=== PATIENT | male | born 1950 | race Caucasian/White ===

== ENCOUNTER 2023-05-23 08:52 | Day surgery (SDC) | payer OTHER, SELFPAY ==
--- NOTE | 2023-05-23 | PATH_ITS ---
[facility] Accession Number: [id number] No. of containers..01 Tissue . 01 Material submitted: . cecum - CECAL POLYPS 8mm . 01 Diagnosis: Cecal Polyps, Biopsy: Tubular adenomas. MRV 05/27/2023 1334 Local . 01 Electronically signed: . Sushma Lee MD, Pathologist NPI- [id number] . 01 Gross description: . CECAL POLYPS 8mm: Received in formalin is multiple fragment(s) of vee, soft tissue measuring 1.5 x 0.5 x 0.1 cm in aggregate submitted entirely in 1 cassette(s) /AAY 05/25/2023 0537 Local . 01 Pathologist provided ICD-10: D12.0 . 01 CPT . 450400 Specimen Comment: A courtesy copy of this report has been sent to [phone] Performed at: 01 [facility] [address] [place] [address], [place], [place] [id number] MD Giorgi Monet MD Phone: [phone]
[2023-05-23 11:07] VITALS: BP 130/87; PULSE 66; RESP 16; TEMP 36.2; O2SAT 93
[2023-05-23] MEDS: LACTATED RINGERS 1,000 ML 42 ML IV (11:08)
--- NOTE | 2023-05-23 11:48 | PM.HP.1 ---
History of Present Illness History of Present Illness Date Patient Seen: 05/23/23 Time Patient Seen: 11:48 Chief complaint: Colonoscopy Narrative: Juventino is a 72-year-old man who is here for colonoscopy. He has a brother who was diagnosed with colon cancer and had surgery. [facility] Social History Smoking Status: Never smoker alcohol intake: never Meds Home Medications and Allergies Home Medications Medication Instructions Recorded Confirmed Type hydrochlorothiazide 25 mg tablet 25 mg PO QAM 05/23/23 05/23/23 History losartan 100 mg tablet 100 mg PO DAILY 05/23/23 05/23/23 History Allergies Allergy/AdvReac Type Severity Reaction Status Date / Time No Known Drug Allergies Allergy Verified 05/23/23 10:56 Exam Vital Signs (past 8 hours): - 05/23/23 11:07 Temperature 97.2 F L Pulse Rate 66 Respiratory Rate 16 Blood Pressure 130/87 Pulse Oximetry 93 Oxygen Delivery Method Room Air Oxygen Delivery Method Room Air Const General: healthy appearing and No acute distress Assessment & Plan Assessment and plan (1) Family history of colon cancer: Status: Acute Plan We reviewed risks and benefits of colonoscopy for a family history of colon cancer and he would like to proceed.
--- NOTE | 2023-05-23 12:29 | PM.OP.COLON ---
Operative Date/Time/Diagnoses Date of procedure: 05/23/23 Time of procedure: 12:29 Pre-op diagnosis: Family history of colon cancer Post-op diagnosis: same Procedure & Clinicians Study performed: Colonoscopy Same procedure as scheduled: Yes Surgeon: Don Samuel Procedure Notes Procedure in detail: Surgeon: Don Samuel MD Anesthesia: Manasa Thomas CRNA Procedure: The patient was brought to the endoscopy suite, placed in left lateral decubitus position. The patient was connected to monitoring devices. A time-out was performed. Sedation was administered. Once the patient was adequately sedated, a digital rectal exam was performed and prostate was noted to be large but appropriate for age. The scope was then inserted and advanced to the cecum where the appendiceal orifice was identified and photographed. The scope was then slowly withdrawn over greater than 6 minutes. The mucosa was thoroughly inspected. There was an 8 mm polyp in the cecum removed with a cold snare. There were 2 3 mm polyps in the cecum removed with a cold snare. There were 3 additional polyps under 4 mm in the cecum removed with the Jumbo forceps. The scope was retroflexed in the rectum. No other abnormalities were seen. The scope was straightened and removed. The patient was awakened and brought to recovery. Scope withdrawal time: 19 minutes Sedation time: 23 minutes EBL: 5 mL Findings: Multiple cecal polyps as described above Post-procedure Disposition: PACU
[2023-05-23 12:31] VITALS: BP 139/83; PULSE 59; RESP 16; TEMP 36.8; O2SAT 97
[2023-05-23 12:38] VITALS: BP 151/88; PULSE 59; RESP 16; O2SAT 97
[2023-05-23 12:41] VITALS: BP 157/93; PULSE 54; RESP 16; TEMP 36.3; O2SAT 97
[2023-05-23 12:46] VITALS: BP 142/89; PULSE 56; RESP 16; O2SAT 97
== END 2023-05-23 12:57 | disposition home or self-care (01) ==
PROVIDERS: PCP Internal Medicine; Referring Provider Surgery; Visit Provider Surgery
PROC: 0DJD8ZZ Inspection of Lower Intestinal Tract, Via Natural or Artificial Opening Endoscopic (ICD-10-PCS; CPT 45378; principal; 2023-05-23 10:45)
DX: Z12.11 Encounter for screening for malignant neoplasm of colon (principal); Z80.0 Family history of malignant neoplasm of digestive organs; D12.0 Benign neoplasm of cecum
CPT/HCPCS: 45385; 45380; J2704

== ENCOUNTER 2024-01-29 14:32 | Observation (INO) | payer OTHER, SELFPAY ==
[2024-01-29] VITALS (12 sets, daily range): BP systolic 132–161; BP diastolic 67–91; PULSE 42–49; RESP 10–28; TEMP 36.8–37.3; O2SAT 96–98; BMI 25.7; BMI 25.5
--- NOTE | 2024-01-29 14:32 | DI.RAD.S_ITS ---
PROCEDURE: XR CHEST 1V INDICATIONS: chest pain TECHNIQUE: One view of the chest was acquired. COMPARISON: None. FINDINGS: Surgical changes and devices: None. Lungs and pleura: Lungs are clear. No pleural effusions or pneumothorax. Mediastinum: Mediastinal contours appear normal. Heart size is normal. Bones and chest wall: No suspicious bony lesions. Overlying soft tissues appear unremarkable. IMPRESSION: No acute cardiopulmonary abnormality is seen. Dictated by: Luis Jennings M.D. on 01/29/2024 at 15:04 Approved by: Luis Jennings M.D. on 01/29/2024 at 15:04
--- NOTE | 2024-01-29 14:32 | EKG_ITS ---
[facility] [address] [place] [address] Test Date: 2024-01-29 Pat Name: Juventino Castillo Department: [facility] Room: Gender: Male [place]: REYMUNDO : 1950 Requested By: Order Number: [id number] Reading MD: Efren Lauren MD Measurements Intervals [place] Rate: 45 P: 25 FL: 232 QRS: -28 QRSD: 102 T: 8 QT: 470 QTc: 406 Interpretive Statements Sinus bradycardia with 1st degree AV block Minimal voltage criteria for LVH, may be normal variant ( R in aVL ) Electronically Signed On 01-30-2024 8:26:09 PDT by Efren Lauren MD
[2024-01-29 14:43] LABS: Add Manual Diff / Slide Review NO; Basophils Absolute Auto 0 /uL (0-100); Basophils Percent Auto 0.4 % (0-2); Eosinophils Absolute Auto 0 /uL (0-450); Eosinophils Percent Auto 0.3 % (2-4); Hematocrit 47.6 % (41-53); Hemoglobin 16.5 g/dL (13.5-17.5); Lymphocytes Absolute Auto 1000 /uL (1100-4500); Lymphocytes Percent Auto 8.5 % (25-40); Mean Corpuscular HGB Conc 34.7 % (30-36); Mean Corpuscular Hemoglobin 30.2 PG (26-34); Monocytes Absolute Auto 800 /uL (0-900); Monocytes Percent Auto 7.4 % (3-14); Neutrophils Absolute Auto 9500 /uL (1500-7000); Neutrophils Percent Auto 83.4 % (50-75); Platelet Count 189 X10^3/uL (150-400); Red Blood Cell Count 5.47 X10^6/uL (4.5-5.9); Red Cell Distribution Width 13.6 % (11.6-14.8); White Blood Cell Count 11.4 X10^3/uL (4.5-11.0)
[2024-01-29 14:54] LABS: PTT Partial Thromboplastin Tim 35 SECONDS (25.1-36.5)
[2024-01-29 14:57] LABS: Alanine Aminotransferase 11 IU/L (<50); Albumin 4.3 g/dL (3.5-5.0); Albumin Globulin Ratio 1.2 (1.0-2.8); Alkaline Phosphatase 65 U/L (38-126); Aspartate Aminotransferase 27 IU/L (17-59); BUN Creatinine Ratio 23.6 (6-22); Bilirubin Total 1.1 mg/dL (0.2-1.3); Blood Urea Nitrogen 25 mg/dL (9-20); Calcium 9.5 mg/dL (8.4-10.2); Carbon Dioxide 26 mmol/L (22-32); Chloride 101 mmol/L (98-107); Creatine Kinase 77 U/L (55-170); Estimated Glomerular Filt Rate > 60 mL/min (>60); Globulin 3.5 g/dL (1.7-4.1); Glucose 145 mg/dL (80-110); Lipase 213 U/L (23-300); Magnesium 1.8 mg/dL (1.6-2.3); Potassium 3.8 mmol/L (3.4-5.1); Sodium 136 mmol/L (137-145); Total Protein 7.8 g/dL (6.3-8.2)
[2024-01-29 14:59] LABS: HEMOLYSIS 80 (0-50)
[2024-01-29 15:08] LABS: NT-proBNP (BNP-Adult 18+) 25 pg/mL (<125); Troponin I < 0.012 ng/mL (0.01-0.034)
--- NOTE | 2024-01-29 16:05 | ED.GENADULT ---
HPI - General Adult General Chief complaint: Abdominal Pain Stated complaint: Abdominal Pain, Heart Rate 35 Time Seen by Provider: 01/29/24 15:36 History of Present Illness HPI narrative: 73-year-old gentleman with the hip history of hypertension no personal heart disease but a family history of such had a normal breakfast and then a couple of hours thereafter had the abrupt onset of severe epigastric pain preceded by severe diaphoresis and dyspnea. When medics arrived they found him to be in a first-degree block bradycardia. Symptoms rather abruptly discontinued shortly after arrival in the emergency department. He has never had similar findings. He notes that he has not had any recent illnesses, reports no prior chest pain, exertional dyspnea, orthopnea, abdominal pain. He has had no abdominal surgeries no prior bowel obstructions no difficulties with constipation or diarrhea. Related Data Home Medications Medication Instructions Recorded Confirmed hydrochlorothiazide 25 mg tablet 25 mg PO QAM 05/23/23 05/23/23 losartan 100 mg tablet 100 mg PO DAILY 05/23/23 05/23/23 Allergies Allergy/AdvReac Type Severity Reaction Status Date / Time No Known Drug Allergies Allergy Verified 05/23/23 10:56 Review of Systems Review of Systems Narrative: Pertinent positive and negative findings as per HPI Patient History Medical History (Updated 01/29/24 @ 18:33 by Annalee Mitchell MD) Hypertension Social History Smoking Status: Never smoker alcohol intake: never Smoking Status: Never smoker Substance Use Type: does not use Exam Initial Vital Signs Initial Vital Signs: Vital Signs Temperature 98.3 F 01/29/24 14:25 Pulse Rate 44 L 01/29/24 14:25 Respiratory Rate 17 01/29/24 14:25 Blood Pressure 155/91 H 01/29/24 14:25 Pulse Oximetry 96 01/29/24 14:25 Oxygen Delivery Method Room Air 01/29/24 14:25 General: Healthy appearing, in no acute distress. Able to give a complete and coherent history. Well-nourished well-developed HEENT: Moist mucous membranes, normal sclera with reactive pupils, Neck: No JVD, supple Respiratory: Lungs are clear to auscultation, no wheezing no rales no rhonchi. Full and symmetrical air movement Cardiac: Regular rate and rhythm no murmurs no bruits Abdomen: Soft, nontender, good bowel tones, no flank pain Skin: Warm and dry, no rashes Neurologic: Grossly neurologically intact with no obvious asymmetries or abnormalities Extremities: No trauma, well perfused Psych: Cooperative, appropriate insight and affect Course Orders Ordered: ED Orders 01/29/24 14:32 XR chest 1V Stat Complete Blood Count AUTO DIFF Stat Comprehensive Metabolic Panel Stat Lipase Stat Magnesium Stat NT-proBNP (BNP-Adult 18+) Stat PTT Partial Thromboplastin [place] Stat Prothrombin Time INR Stat Troponin & CK Cardiac Panel Stat EKG-12 Lead Stat 01/29/24 16:37 US abdomen limited Stat 01/29/24 16:55 Trop I [Troponin I] Stat Discontinued Medications Sodium Chloride (Normal Saline 0.9%) 1,000 mls @ 1,000 mls/hr IV BOLUS ONE Stop: 01/29/24 17:05 Last Infusion: 01/29/24 17:21 Dose: Infused Documented By: Admin: 01/29/24 16:09 Dose: 1,000 mls/hr Documented By: REYMUNDO Vital Signs Vital signs: Vital Signs - 8 hr 01/29/24 14:25 Temperature 98.3 F Pulse Rate 44 L Respiratory Rate 17 Blood Pressure 155/91 H Pulse Oximetry 96 Oxygen Delivery Method Room Air Medical Decision Making Lab Data 01/29/24 14:32 01/29/24 14:32 Labs: Lab Results 01/29/24 01/29/24 Range/Units 14:32 16:55 WBC 11.4 H (4.5-11.0) X10^3/uL RBC 5.47 (4.5-5.9) X10^6/uL Hgb 16.5 (13.5-17.5) g/dL Hct 47.6 (41-53) % MCV 87.0 (80-100) fL MCH 30.2 (26-34) PG MCHC 34.7 (30-36) % RDW 13.6 (11.6-14.8) % Plt Count 189 (150-400) X10^3/uL Neut % (Auto) 83.4 H (50-75) % Lymph % (Auto) 8.5 L (25-40) % [place] % (Auto) 7.4 (3-14) % Eos % (Auto) 0.3 L (2-4) % Baso % (Auto) 0.4 (0-2) % Neut # (Auto) 9500 H (0768-3407) /uL Lymph # (Auto) 1000 L (6827-9692) /uL [place] # (Auto) 800 (0-900) /uL Eos # (Auto) 0 (0-450) /uL Baso # (Auto) 0 (0-100) /uL PT 12.0 (9.4-12.5) SECONDS INR 1.0 (0.9-1.3) APTT 35 (25.1-36.5) SECONDS Sodium 136 L (137-145) mmol/L Potassium 3.8 (3.4-5.1) mmol/L Chloride 101 (98-107) mmol/L Carbon Dioxide 26 (22-32) mmol/L BUN 25 H (9-20) mg/dL Creatinine 1.06 (0.66-1.25) mg/dL Estimated GFR > 60 (>60) mL/min BUN/Creatinine Ratio 23.6 H (6-22) Glucose 145 H (80-110) mg/dL Calcium 9.5 (8.4-10.2) mg/dL Magnesium 1.8 (1.6-2.3) mg/dL Total Bilirubin 1.1 (0.2-1.3) mg/dL AST 27 (17-59) IU/L ALT 11 (<50) IU/L Alkaline Phosphatase 65 (38-126) U/L Total Creatine Kinase 77 (55-170) U/L Troponin I < 0.012 0.035 H (0.01-0.034) ng/mL NT-Pro-B Natriuret Pep 25 (<125) pg/mL Total Protein 7.8 (6.3-8.2) g/dL Albumin 4.3 (3.5-5.0) g/dL Globulin 3.5 (1.7-4.1) g/dL Albumin/Globulin Ratio 1.2 (1.0-2.8) Lipase 213 (23-300) U/L MDM Narrative Medical decision making narrative: CC: Acute onset diaphoresis, dyspnea and then epigastric pain Complicating co-morbidities: Hypertension Data collected from: patient Differential considered: Acute coronary syndrome, gallstone colic, bowel obstruction, gastric ulcer, esophageal spasm Exam documented above, pertinent findings include: Pain has essentially resolved by time of arrival in the emergency department exam remains benign Lab Test results independently reviewed as above. Pertinent findings: CBC shows leukocytosis at 11.4 with 83% neutrophils no anemia Chemistries show normal renal function and electrolytes. No liver abnormalities Initial troponin is undetectable Lipase is unremarkable Repeat troponin is minimally elevated at 0.035 Independently reviewed EKG: Sinus bradycardia at a rate of 145. No acute ischemic changes Imaging studies independently reviewed: Chest x-ray is unremarkable, no acute cardiopulmonary findings Preliminary ultrasound shows no stones, no acute cholecystitis, mild fatty liver Treatments: Fluids given Discussion: 73-year-old gentleman with acute onset severe epigastric to chest pain. Dramatic in onset associated with diaphoresis. Almost complete resolution with minimal intervention. No evidence of gallstones to suggest that this could have been gallbladder colic. Initial troponin is within normal limits EKG is reassuring. Unfortunately the 2nd troponin is elevated and minimally out of normal ranges. Given his significant pain as well as diaphoresis with no similar symptoms, his family history and the change in troponin I do think that observation to rule out acute coronary syndrome is going to be appropriate. His heart score is 5 which puts him in the high-risk category. We will discuss with the hospitalist service Discharge Plan Departure Patient Disposition: Admitted as Observation Clinical Impression: Elevated troponin Instructions: DI for Epigastric Pain Activity Restrictions/Additional Instructions: Thank you for coming in today Fortunately, I did not identify any life-threatening abnormalities to explain the severe episode you have today. Specifically, there is no evidence of gallstones to suggest a gallbladder attack, no evidence of bleeding from your stomach, no heart attack, EKG and chest x-ray are all unremarkable. There was no suggestion of significant liver abnormalities kidney abnormalities or infection. Sometimes the best were able to do from the emergency department is explain all the things that you do not have, but we may not come up with the exact explanation for what caused your symptoms. At this point I believe it is safe for you to go home. They would recommend follow up with your primary care physician Prescriptions: No Action hydrochlorothiazide 25 mg tablet 25 mg PO QAM losartan 100 mg tablet 100 mg PO DAILY Referrals: Wilman Infante MD [Primary Care Provider] -
[2024-01-29] MEDS: SODIUM CHLORIDE 0.9% 1,000 ML 1000 ML IV (16:09)
--- NOTE | 2024-01-29 16:37 | DI.US.S_ITS ---
PROCEDURE: US ABDOMEN LIMITED INDICATIONS: gallbladder TECHNIQUE: Real-time scanning was performed of the abdominal and retroperitoneal organs, with image documentation. COMPARISON: None. FINDINGS: Liver: There is hepatomegaly measures 18.4 cm in length. Increased liver parenchymal echotexture is seen. No discrete hepatic lesion. Gallbladder: There is no gallstone. No gallbladder wall thickening or pericholecystic fluid. No sonographic Cruz sign. Biliary ducts: Intrahepatic bile ducts are non-dilated. Extrahepatic bile duct caliber measures 3.4 mm. Normal is 6-7 mm or less in diameter, or 10 mm or less post-cholecystectomy. Pancreas: Visualized portions of the pancreas are sonographically normal. Miscellaneous: No free abdominal fluid. IMPRESSION: 1. Hepatomegaly and hepatic steatosis. No discrete hepatic lesion. 2. Normal appearing gallbladder. No biliary ductal dilatation. 3. Rest of the exam is unremarkable. Dictated by: Adam Fuller M.D. on 01/29/2024 at 18:03 Approved by: Adam Fuller M.D. on 01/29/2024 at 18:04
[2024-01-29 17:36] LABS: Troponin I 0.035 ng/mL (0.01-0.034)
[2024-01-29] MEDS: SODIUM CHLORIDE 0.9% 1,000 ML 75 ML IV (21:16)
[2024-01-30] VITALS: BP 134/65; PULSE 44; RESP 15; TEMP 36.9; O2SAT 95
[2024-01-30 01:17] LABS: Troponin I 0.065 ng/mL (0.01-0.034)
[2024-01-30 04:00] VITALS: BP 138/75; PULSE 43; RESP 15; TEMP 36.6; O2SAT 98
--- NOTE | 2024-01-30 05:03 | PC.ADMIT ---
[email or web address] Cesar Admission Note: Patient admitted to AC unit at 20:17. Alert and oriented x 4, cooperative. Denies chest pain, shortness of breath, or discomfort of any kind. Independent in room. NS @ 75/hr. NPO at midnight per order. Oriented to room and call light, call light within reach. The patient,Juventino Castillo,73 y/o, was given written information regarding hospital policies, unit procedures and contact persons. Patient's smoking status: Never smoker. Vital Signs - 8 hr 01/30/24 00:00 01/30/24 04:00 Temperature 98.5 F 97.9 F Pulse Rate 44 L 43 L Respiratory Rate 15 15 Blood Pressure 134/65 138/75 Pulse Oximetry 95 98 Oxygen Flow Rate 0 0
[2024-01-30 06:21] LABS: Add Manual Diff / Slide Review NO; Basophils Absolute Auto 0 /uL (0-100); Basophils Percent Auto 0.5 % (0-2); Eosinophils Absolute Auto 100 /uL (0-450); Eosinophils Percent Auto 0.8 % (2-4); Hematocrit 44.6 % (41-53); Hemoglobin 15.4 g/dL (13.5-17.5); Lymphocytes Absolute Auto 1700 /uL (1100-4500); Lymphocytes Percent Auto 18.5 % (25-40); Mean Corpuscular HGB Conc 34.6 % (30-36); Mean Corpuscular Hemoglobin 30.1 PG (26-34); Monocytes Absolute Auto 900 /uL (0-900); Monocytes Percent Auto 9.2 % (3-14); Neutrophils Absolute Auto 6700 /uL (1500-7000); Platelet Count 177 X10^3/uL (150-400); Red Blood Cell Count 5.13 X10^6/uL (4.5-5.9); Red Cell Distribution Width 13.6 % (11.6-14.8); White Blood Cell Count 9.5 X10^3/uL (4.5-11.0)
--- NOTE | 2024-01-30 06:23 | PM.HP.1 ---
History of Present Illness History of Present Illness Chief complaint: Abdominal Pain, Heart Rate 35 Narrative: 73-year-old male with past medical history of hypertension presents with lower chest and epigastric pain. Per the patient's report, the patient was having breakfast this morning when he had an acute onset of lower chest epigastric pain. The patient describe his pain as sharp, non-radiating, last thing for 30 minutes and associate with diaphoresis. The patient however denies any nausea, vomiting, fever, chills, diarrhea or shortness of breath. The patient denies ever experienced this before. The patient also denies any known cardiac history. In our emergency, room, the patient EKG shows no acute signs of ischemia. Troponin initially was negative but repeat was slightly elevated at 0.035. Chest x-ray was clear. Our physician requested admission for monitoring chest pain and continue to trend troponin. [facility] Medical History (Updated 01/29/24 @ 18:33 by Annalee Mitchell MD) Hypertension Social History household members: spouse Smoking Status: Never smoker alcohol intake: never Meds Home Medications and Allergies Home Medications Medication Instructions Recorded Confirmed Type hydrochlorothiazide 25 mg tablet 25 mg PO QAM 05/23/23 01/29/24 History losartan 100 mg tablet 100 mg PO DAILY 05/23/23 01/29/24 History Allergies Allergy/AdvReac Type Severity Reaction Status Date / Time No Known Drug Allergies Allergy Verified 05/23/23 10:56 Review of Systems Review of Systems Narrative: 12 points of ROS are negative except for what was mentioned per HPI. Exam Vital Signs (past 8 hours): - 01/30/24 00:00 01/30/24 04:00 Temperature 98.5 F 97.9 F Pulse Rate 44 L 43 L Respiratory Rate 15 15 Blood Pressure 134/65 138/75 Pulse Oximetry 95 98 Oxygen Flow Rate 0 0 Oxygen Delivery Method Room Air Oxygen Flow Rate 0 Narrative Exam Narrative: GENERAL: The patient is not in any acute distressed. Awake and alert. HEENT: Nonicteric sclerae, PERRLA, EOMI. Oropharynx clear. Moist mucous membranes. Conjunctivae appear well perfused. HEART: Regular rate and rhythm without murmurs. No lower extremities edema. LUNGS: Clear to auscultation bilaterally. No wheezing, crackles or rhonchi ABDOMEN: Soft, positive bowel sounds, nontender. SKIN: No rash, no excessive bruising, petechiae, or purpura. NEUROLOGIC: AxO x 3. Cranial nerves II-XII intact without motor/sensory deficit. Objective Labs 01/30/24 06:07 01/29/24 14:32 Labs: Laboratory Results - last 24 hr 01/29/24 01/29/24 01/29/24 00:02 14:32 16:55 WBC 11.4 H RBC 5.47 Hgb 16.5 Hct 47.6 MCV 87.0 MCH 30.2 MCHC 34.7 RDW 13.6 Plt Count 189 Neut % (Auto) 83.4 H Lymph % (Auto) 8.5 L [place] % (Auto) 7.4 Eos % (Auto) 0.3 L Baso % (Auto) 0.4 Neut # (Auto) 9500 H Lymph # (Auto) 1000 L [place] # (Auto) 800 Eos # (Auto) 0 Baso # (Auto) 0 PT 12.0 INR 1.0 APTT 35 Sodium 136 L Potassium 3.8 Chloride 101 Carbon Dioxide 26 BUN 25 H Creatinine 1.06 Estimated GFR > 60 BUN/Creatinine Ratio 23.6 H Glucose 145 H Calcium 9.5 Magnesium 1.8 Total Bilirubin 1.1 AST 27 ALT 11 Alkaline Phosphatase 65 Total Creatine Kinase 77 Troponin I 0.065 H < 0.012 0.035 H NT-Pro-B Natriuret Pep 25 Total Protein 7.8 Albumin 4.3 Globulin 3.5 Albumin/Globulin Ratio 1.2 Lipase 213 01/30/24 06:07 WBC 9.5 RBC 5.13 Hgb 15.4 Hct 44.6 MCV 87.0 MCH 30.1 MCHC 34.6 RDW 13.6 Plt Count 177 Neut % (Auto) 71.0 Lymph % (Auto) 18.5 L [place] % (Auto) 9.2 Eos % (Auto) 0.8 L Baso % (Auto) 0.5 Neut # (Auto) 6700 Lymph # (Auto) 1700 [place] # (Auto) 900 Eos # (Auto) 100 Baso # (Auto) 0 PT INR APTT Sodium Potassium Chloride Carbon Dioxide BUN Creatinine Estimated GFR BUN/Creatinine Ratio Glucose Calcium Magnesium Total Bilirubin AST ALT Alkaline Phosphatase Total Creatine Kinase Troponin I NT-Pro-B Natriuret Pep Total Protein Albumin Globulin Albumin/Globulin Ratio Lipase Assessment & Plan Assessment & Plan narrative: Chest pain. Unclear itiology. Admit patient to medical telemetry under observation. Of note EKG shows no sign of acute ischemia. Initial troponin was normal and repeat was 0.035. patient is chest pain-free. Continue to trend troponin and monitor for recurring chest pain. Will get A1C and lipid panel. NPO after midnight for possible stress test in the morning . Hypertension. Blood pressure is normal. Monitor and treat accordingly . DVT prophylaxis SCD due to observational status . Code status full code . Disposition likely home in 1 to 2 days. Time-Based Coding :: [TOTAL MINUTES] spent with patient and on the chart (including review of chart, obtaining history, exam, reviewing outside data, placing orders, documenting exam and treatment plan, and counseling patient) on [DATE]. Quality VTE Deep Vein Thrombosis/Pulmonary Embolism Present on Admission: No
[2024-01-30 06:38] LABS: Cholesterol 177 mg/dL (140-199); HDL Cholesterol 39 mg/dL (40-60); LDL Cholesterol Calculated 109 mg/dL (<100); Triglycerides 144 mg/dL (35-150)
[2024-01-30 06:39] LABS: BUN Creatinine Ratio 19.2 (6-22); Blood Urea Nitrogen 20 mg/dL (9-20); Carbon Dioxide 26 mmol/L (22-32); Chloride 108 mmol/L (98-107); Estimated Glomerular Filt Rate > 60 mL/min (>60); Glucose 104 mg/dL (80-110); HEMOLYSIS < 15 (0-50); Potassium 4.1 mmol/L (3.4-5.1); Sodium 140 mmol/L (137-145)
[2024-01-30 06:51] LABS: Troponin I 0.041 ng/mL (0.01-0.034)
[2024-01-30 08:00] VITALS: BP 145/81; PULSE 45; RESP 16; TEMP 36.2; O2SAT 98
[2024-01-30 08:45] VITALS: BP 138/75; PULSE 45
[2024-01-30] MEDS: hydroCHLOROthiazide 25 MG TABLET PO (08:45)
[2024-01-30] MEDS: LOSARTAN 50 MG TABLET 100 MG PO (08:45)
--- NOTE | 2024-01-30 10:55 | P.DS_ITS ---
History of Present Illness History of Present Illness Chief complaint: Abdominal Pain, Heart Rate 35 Narrative: From H&P: 73-year-old male with past medical history of hypertension presents with lower chest and epigastric pain. Per the patient's report, the patient was having breakfast this morning when he had an acute onset of lower chest epigastric pain. The patient describe his pain as sharp, non-radiating, last thing for 30 minutes and associate with diaphoresis. The patient however denies any nausea, vomiting, fever, chills, diarrhea or shortness of breath. The patient denies ever experienced this before. The patient also denies any known cardiac history. In our emergency, room, the patient EKG shows no acute signs of ischemia. Troponin initially was negative but repeat was slightly elevated at 0.035. Chest x-ray was clear. Our physician requested admission for monitoring chest pain and continue to trend troponin. Discharge Providers Provider Date of admission: 01/29/24 18:40 Discharge Date: 01/30/24 Primary care physician: Wilman Infante MD Consults: None Discharge provider: Hood Qureshi MD Summary Hospital Course Discharge Diagnosis: 1. Chest pain, present on admission and improved. 2. HTN, present on admission and stable. Hospital Course: The patient was admitted for chest pain rule out, he had resolution of his epigastric pain. EKG was unremarkable. He would very minimally elevated troponins of 0.041, 0.035, 0.012, and 0.065. A stress test disorder and he went on for resting phase but then declined to stay for the rest of the stress test. He stated he felt like his chest pain was not his heart. I did tell him that I strongly recommended very close follow up with his primary care and outpatient stress test to complete his risk stratification testing with his strong family history of heart disease and abnormal troponins. I did try to encourage him to stay for his exercise phase and when they came up to get him to bring him back down he again declined. I advised him to take a baby aspirin a day and contact his doctor within the next 2 days to get a stress test organized. He cited having to get ready for work obligation is his reason for not be able to do the stress test today. Status at Discharge Cognitive/behavioral status at discharge: oriented Functional status at discharge: independent ambulation Overall status at discharge: patient is back to baseline Time Spent with Patient Time spent: Greater than 30 minutes Exam Vital Signs (past 8 hours): - 01/30/24 04:00 01/30/24 08:00 01/30/24 08:45 Temperature 97.9 F 97.1 F L Pulse Rate 43 L 45 L 45 L Respiratory Rate 15 16 Blood Pressure 138/75 145/81 H 138/75 Pulse Oximetry 98 98 Oxygen Flow Rate 0 0 Oxygen Delivery Method Room Air Oxygen Flow Rate 0 Narrative Exam Narrative: NAD, alert and oriented. Fluent speech. Lungs are clear, normal rate and effort. Heart is regular, no murmur gallop or rub. Abdomen is soft, non distended. Extremities are free of edema. Objective ECG Impression: Sinus bradycardia with 1st degree AV block Minimal voltage criteria for LVH, may be normal variant ( R in aVL ) No acute changes. Imaging US - abdomen: Radiologist's impression: 1. Hepatomegaly and hepatic steatosis. No discrete hepatic lesion. 2. Normal appearing gallbladder. No biliary ductal dilatation. 3. Rest of the exam is unremarkable. Chest x-ray: Radiologist's impression: No acute cardiopulmonary abnormality is seen. Labs 01/30/24 06:07 01/30/24 06:07 Labs: Laboratory Results - last 24 hr 01/29/24 01/29/24 01/29/24 00:02 14:32 16:55 WBC 11.4 H RBC 5.47 Hgb 16.5 Hct 47.6 MCV 87.0 MCH 30.2 MCHC 34.7 RDW 13.6 Plt Count 189 Neut % (Auto) 83.4 H Lymph % (Auto) 8.5 L Boundary % (Auto) 7.4 Eos % (Auto) 0.3 L Baso % (Auto) 0.4 Neut # (Auto) 9500 H Lymph # (Auto) 1000 L Boundary # (Auto) 800 Eos # (Auto) 0 Baso # (Auto) 0 PT 12.0 INR 1.0 APTT 35 Sodium 136 L Potassium 3.8 Chloride 101 Carbon Dioxide 26 BUN 25 H Creatinine 1.06 Estimated GFR > 60 BUN/Creatinine Ratio 23.6 H Glucose 145 H Hemoglobin A1c Calcium 9.5 Magnesium 1.8 Total Bilirubin 1.1 AST 27 ALT 11 Alkaline Phosphatase 65 Total Creatine Kinase 77 Troponin I 0.065 H < 0.012 0.035 H NT-Pro-B Natriuret Pep 25 Total Protein 7.8 Albumin 4.3 Globulin 3.5 Albumin/Globulin Ratio 1.2 Triglycerides Cholesterol LDL Cholesterol, Calc HDL Cholesterol Lipase 213 01/30/24 06:07 WBC 9.5 RBC 5.13 Hgb 15.4 Hct 44.6 MCV 87.0 MCH 30.1 MCHC 34.6 RDW 13.6 Plt Count 177 Neut % (Auto) 71.0 Lymph % (Auto) 18.5 L Boundary % (Auto) 9.2 Eos % (Auto) 0.8 L Baso % (Auto) 0.5 Neut # (Auto) 6700 Lymph # (Auto) 1700 Boundary # (Auto) 900 Eos # (Auto) 100 Baso # (Auto) 0 PT INR APTT Sodium 140 Potassium 4.1 Chloride 108 H Carbon Dioxide 26 BUN 20 Creatinine 1.04 Estimated GFR > 60 BUN/Creatinine Ratio 19.2 Glucose 104 Hemoglobin A1c 5.0 Calcium 9.0 Magnesium Total Bilirubin AST ALT Alkaline Phosphatase Total Creatine Kinase Troponin I 0.041 H NT-Pro-B Natriuret Pep Total Protein Albumin Globulin Albumin/Globulin Ratio Triglycerides 144 Cholesterol 177 LDL Cholesterol, Calc 109 H HDL Cholesterol 39 L Lipase [facility] Medical History Hypertension Social History household members: spouse Smoking Status: Never smoker alcohol intake: never Discharge Assessment & Plan Assessment and Plan Assessment: 1. Chest pain, present on admission and improved. Declined inpatient stress test, and agrees to close follow up with his primary care doctor and outpatient stress test as well as 911 for prompt evaluation of recurrent chest pain. 2. HTN, present on admission and stable. Plan of Treatment: Declined inpatient stress test, and agrees to close follow up with his primary care doctor and outpatient stress test as well as 911 for prompt evaluation of recurrent chest pain. Discharge Plan Discharge Plan Patient Disposition: Home Provider Discharge Comment: He declines further testing at this time and wants to you at outpatient. He was stable for discharge home and will take baby aspirin and call his PCP for an expedited outpatient stress test. He agrees to call 911 for any recurrent chest pain. Discharge orders & Medications Prescriptions: New aspirin 81 mg capsule 81 mg PO DAILY Qty: 30 2RF Continued hydrochlorothiazide 25 mg tablet 25 mg PO QAM losartan 100 mg tablet 100 mg PO DAILY Follow up/Referrals: Wilman Infante MD [Primary Care Provider] - Discharge Health Status Multidrug resistant organism: No MDRO Diet/Activity/Treatments Diet: Regular Activity: As tolerated. Visit Report/Discharge Packet Instructions: DI for Chest Pain, DI for Epigastric Pain Stand Alone Forms: Patient Portal/API Discharge Data Primary Care Provider: Wilman Infante Attending Provider: Hood Qureshi Admit Date/Time: 01/29/24 18:40 Quality VTE Deep Vein Thrombosis/Pulmonary Embolism Present on Admission: No MIPS - DC The patient has a history of heart transplant or Left Ventricular Assist Device (LVAD). If yes, STOP here.: No The patient has current or prior documentation of left ventricular ejection fraction (LVEF) less than or equal to 40%, or moderate or severely depressed left ventricular systolic function.: No
--- NOTE | 2024-01-30 11:09 | CM.DANOTE ---
Patient is a 73 yo male who was admitted on 01/29/24 OBS Status for chest pain r/o. Pt has [facility] for insurance and his PCP is Dr. Wilman Infante. EMR was reviewed. Per MD, pt with chest pain but normal EKG and NPO at midnight last night for stress test to r/o any cardiac issues. Per RN, pt independent in room and no concerns noted, non symptomatic. Per MD, pt requesting to discharge as he does not feel cardiac related and would prefer stress test in outpt setting and preference is home this morning. completed discharge orders. Patient lives in [place] with his and is active and independent at baseline, drives, does not use DME. Pt denies any discharge needs at this time and plans to d/c home this morning via spouse POV. ERIK Caputo
--- NOTE | 2024-01-30 12:33 | PC.NURSE ---
Patient is A&OX4. He denies any CP, SOB, abdominal pain, dizziness or any other symptoms. He is independent in the room. HR on telemetry SB. He is evaluated by MD Qureshi, after first part of stress test completed he expresses wanting to discharge. Patient acknowledges recommendation to follow up with PCP for echo and stress test. He is cleared for discharge home today and declines to finish the stress test. He is escorted by nurse to ED entrance to meet for discharge home today in private vehicle at 1130 with all of his belongings
--- NOTE | 2024-01-30 19:10 | DI.NM.S_ITS ---
DATE OF SERVICE: 01/30/2024 PROCEDURE: Resting pharmacological perfusion study only. INDICATIONS: Chest pain, epigastric pain, hypertension. RADIOPHARMACEUTICAL: 11.6 mCi technetium-99m Myoview IV was injected at rest. The patient left AMA. This is a resting study only. Stress test was not performed. RAW DATA: There is increased subdiaphragmatic activity. GATED STUDY: Resting LV ejection fraction is 69% without any obvious wall motion abnormalities. Resting end-diastolic volume 75 mL. MYOCARDIAL PERFUSION SCAN: Resting myocardial perfusion images showed moderate size, moderate to severely decreased perfusion of basal and mid inferior wall as well as inferoapex and basal inferolateral wall and mid septum. CONCLUSION: This is a resting study only with perfusion defect as stated above. There is no stress supine or stress prone images as patient left AMA. Preserved LV function without any significant wall motion abnormalities. This could be tissue attenuation artifact; however, previous myocardial infarction in the right coronary artery territory cannot be ruled out. Findings were reported to Dr. Hood Qureshi. Juventino Castillo - [employer]/mo[employer]/[place] doc#: [id number]/job#: [id number] dd: 01/30/2024 13:03:00 dt: 01/30/2024 19:04:00 DICTATING MD/COPIES TO: Albino Rubalcava MD COPIES MNE: CONSTANTINO;
== END 2024-01-30 11:30 | disposition home or self-care (01) ==
LOC: ED 18:40 → AC 18:40
PROVIDERS: Internal Medicine; Admitting Provider Hospitalist; Emergency Provider Emergency Medicine; PCP Internal Medicine; Referring Provider Emergency Medicine; Visit Provider Hospitalist
DX: R10.13 Epigastric pain (principal); I10 Essential (primary) hypertension; R07.9 Chest pain, unspecified; R79.89 Other specified abnormal findings of blood chemistry
CPT/HCPCS: 36415; 71045; 76705; 78451; 80048; 80053; 80061; 82550; 83036; 83690; 83735; 83880; 84484; 85025; 85610; 85730; 93005; 93010; 96360; 99284; G0378; A9502

== ENCOUNTER → 2024-04-03 08:07 | Outpatient (CLI) | payer OTHER, SELFPAY ==
[2024-01-29 20:28] VITALS: BMI 25.5
--- NOTE | 2024-04-03 | DI.ECHO.S_ITS ---
[place] +---------+ Hospital : : [address] : : [place] : : [id number] : : Phone: [phone] Echocardiogram Report + + :Name: DURGA MICHEL Study Date: 04/03/2024 Height: 74 in : :[facility] ReadingLocation: Weight: 198 lb : : Gender: Male BSA: 2.2 m2 : :: 1950 Age: 73 yrs BP: 138/70 mmHg: :Reason For Study: CHEST PAIN : :Ordering Physician: HI, : :DONAVAN Performed By: Lyle Merino : :Referring: DONAVAN DO : + + Interpretation Summary The left ventricle is normal in size. Left ventricular systolic function appears normal without focal wall motion abnormalities. The ejection fraction is estimated to be 65-70%. Diastolic parameters suggest a relaxation abnormality of the left ventricle, consistent with probable normal filling pressures. The right ventricle is mildly dilated. The right ventricular systolic function is normal. The right ventricular systolic pressure is estimated to be at least 26 mmHg based on an estimated right atrial pressure of 3 mm Hg. The left atrial size is normal. There is no significant valvular heart disease. The ascending aorta is mild-moderately enlarged. Procedure: A two-dimensional transthoracic echocardiogram with color flow and Doppler was performed. The study quality was technically good. There is no prior echocardiogram noted for this patient. The patient was in normal sinus rhythm during the exam. Left Ventricle: The left ventricle is normal in size. Left ventricular wall thickness is mildly increased. There is no ventricular septal defect visualized. Left ventricular systolic function appears normal without focal wall motion abnormalities. The ejection fraction is estimated to be 65-70%. Diastolic parameters suggest a relaxation abnormality of the left ventricle, consistent with probable normal filling pressures. Right Ventricle: The right ventricle is mildly dilated. The right ventricular systolic function is normal. Atria: The left atrial size is normal. Right atrial size is normal. There is no Doppler evidence for an atrial septal defect. Mitral Valve: The mitral valve is normal in structure and function. There is trace mitral regurgitation. Aortic Valve: The aortic valve is trileaflet. The aortic valve opens well. There is trace aortic regurgitation. Tricuspid Valve: The tricuspid valve is normal in structure and function. There is trace tricuspid regurgitation. The right ventricular systolic pressure is estimated to be at least 26 mmHg based on an estimated right atrial pressure of 3 mm Hg. Pulmonic Valve: The pulmonic valve is normal in structure and function. There is trace pulmonic regurgitation. There is no significant valvular heart disease. Great Vessels: The aortic root is mildly dilated. The ascending aorta is mild-moderately enlarged. The pulmonary artery is normal size. The IVC is of normal diameter and collapses greater than 50% with a sniff. This suggests a low right atrial pressure of 3 mm Hg. Pericardium/ Pleura There is no pericardial effusion. There is no pleural effusion. MMode/2D Measurements & Calculations LVIDd: 5.3 cm LVOT diam: 2.1 cm LVIDs: 3.1 cm Ao root diam: 3.8 cm FS: 42.0 % asc Aorta Diam: 4.2 cm EPSS: 0.56 cm IVSd: 1.3 cm LVPWd: 1.0 cm LV kendall. diameter/BSA (cm/m^2): 2.5 LV sys. diameter/BSA (cm/m^2): 1.4 LA A2 area: 19.7 cm2 RA long axis: 4.6 cm LA A4 area: 20.3 cm2 RA area: 12.8 cm2 LA length (vol): 5.7 cm RA vol: 30.3 ml LA vol: 59.7 ml RA : 14.0 ml/m2 LA vol index: 27.6 ml/m2 IVC diam: 2.0 cm RVD1 (basal): 4.3 cm RVD2 (mid): 3.5 cm TAPSE: 2.9 cm Doppler Measurements & Calculations Ao V2 max: 182.6 cm/sec LVOT Max Marco: 117.7 cm/sec Ao V2 mean: 129.7 cm/sec LV V1 max P.5 mmHg Ao max P.3 mmHg LV V1 VTI: 30.5 cm Ao mean P.4 mmHg GALE(I,D): 2.5 cm2 Ao V2 VTI: 42.5 cm GALE(V,D): 2.3 cm2 sev ratio: 0.72 GALE indexed to BSA (cm^2/m^2): 1.2 MV E max marco: 65.2 cm/sec TR max marco: 237.1 cm/sec MV A max marco: 80.5 cm/sec TR max P.5 mmHg MV E/A: 0.81 PA V2 max: 90.3 cm/sec Med Peak E' Marco: 7.6 cm/sec PA V2 mean: 59.0 cm/sec E/E' med: 8.6 PA mean P.6 mmHg Lat Peak E' Marco: 8.9 cm/sec PA pr(Accel): 31.0 mmHg E/E' lat: 7.3 E/e' average: 7.9 MV dec time: 0.31 sec SV(OT): 108.3 ml Reading Physician:02:20 PM
--- NOTE | 2024-04-03 | DI.NM.S_ITS ---
PROCEDURE: NM EXERCISE TREADMILL NON NUC COMPARISON: None. INDICATIONS: CHEST PAIN FINDINGS: Patient exercised per the standard Dong protocol. Total exercise time was 7 minutes and 47 seconds. Test was terminated secondary to fatigue. Maximal heart rate obtained was 138 bpm which is 93% of max impacted heart rate. Maximum blood pressure was 210/70[place] [address]. MAIKOL -17%. 10.1 METS. No ischemic changes noted. No arrhythmias but occasional PVC's present during recovery. No chest pains voiced. Normal heart rate with hypertensive response to exercise. IMPRESSION: 1. Negative exercise treadmill stress test for ischemia. 2. Above average exercise tolerance. 3. Hypertensive response to exercise. Dictated by: Carrington Fuller M.D. on 04/03/2024 at 16:37 Approved by: Carrington Fuller M.D. on 04/03/2024 at 16:44
== END ==
PROVIDERS: PCP Internal Medicine; Referring Provider Internal Medicine; Visit Provider Internal Medicine
DX: I77.810 Thoracic aortic ectasia (principal); I77.89 Other specified disorders of arteries and arterioles; R07.9 Chest pain, unspecified
CPT/HCPCS: 93017; 93306